=== PATIENT | male | born 1945 | race Caucasian/White ===

== ENCOUNTER → 2017-10-10 | Outpatient (REF) | payer MEDICARE ==
[2017-10-10 13:30] LABS: RHEUMATOID FACTOR QUANT < 10.0 IU/ML (0-15.0)
[2017-10-10 15:12] LABS: ERYTHROCYTE SEDIMENTATION RATE 2 mm/hr (0-20)
[2017-10-11 14:12] LABS: ANTINUCLEAR ANTIBODIES DIRECT Negative (Negative)
== END ==
LOC: M LABNEURO 09:34
DX: R51 Headache (principal)
CPT/HCPCS: 36415

== ENCOUNTER → 2020-12-25 | Outpatient (CLI) | payer MEDICARE ==
[~2020-12-25] MED LIST: CARB25TA9 PO; CITA20TA7 PO; COUM1TAB17; LATA0.0015 OU; MILK400S12 PO; TIMO5SOL6; TRAVATAN; XARE20TA PO; ZYLO300T6 PO
== END ==
LOC: M LABSMTC 09:36
PROVIDERS: ATTEND Anesthesiology
DX: Z01.812 Encounter for preprocedural laboratory examination (principal); Z20.822 Contact with and (suspected) exposure to COVID-19

== ENCOUNTER 2020-12-30 06:08 | Day surgery (SDC) | payer MEDICARE ==
[~2020-12-30] VITALS: Ht 172.7 cm; Wt 75.3 kg
[~2020-12-30 06:08] MED LIST changes: +LR 1,000 ML IV ONE; +ceFAZolin SOD 2 GM in IV 1 EA IV ONE
[2020-12-30] MEDS ORDERED: ONDANSETRON 4MG/2ML VIAL As Ordered ONE (07:15)
[2020-12-30] MEDS ORDERED: dexameTHASONE 4 MG/ML 1ML VIAL (J1100 PER 1MG) As Ordered ONE (07:15)
[2020-12-30] MEDS ORDERED: LIDOCAINE 2% 100MG/5ML SDV (FOR ANES.) As Ordered ONE (07:15)
[2020-12-30] MEDS ORDERED: ROCURONIUM BROMIDE 50 MG/5 ML VIAL As Ordered ONE ×2 (07:15→08:15)
[2020-12-30] MEDS ORDERED: propofoL 200 MG/20 ML VIAL As Ordered ONE (07:15)
[2020-12-30] MEDS ORDERED: fentaNYL 100 MCG/2 ML INJECTION (J3010) As Ordered ONE ×2 (07:16→09:41)
[2020-12-30] MEDS ORDERED: MIDAZOLAM INJ 2MG/2ML VIAL (J2250 PER 1MG) As Ordered ONE (07:16)
[2020-12-30] MEDS ORDERED: ACETAMINOPHEN 1000MG 100ML IV BTL (OFIRMEV) (J0131 PER 10MG) As Ordered ONE (07:16)
[2020-12-30] MEDS ORDERED: BUPIVACAINE HCL 0.25% 30ML VIAL As Ordered ONE (07:19)
[2020-12-30] MEDS ORDERED: LIDOCAINE 1% SDV 30ML VIAL As Ordered ONE (07:19)
[2020-12-30] MEDS ORDERED: LACRILUBE (AKWA TEARS) OPHTH OINT 3.5 GM As Ordered ONE (07:22)
[2020-12-30] MEDS ORDERED: KETOROLAC 60MG 2ML VIAL As Ordered ONE (08:22)
[2020-12-30] MEDS ORDERED: SUGAMMADEX SODIUM 500 MG/5 ML VIAL (BRIDION) As Ordered ONE (08:22)
[2020-12-30] MEDS ORDERED: ePHEDrine SULFATE 25 MG/5 ML(5MG/ML) SYRINGE As Ordered ONE (08:54)
[2020-12-30] MEDS ORDERED: oxyCODONE 5MG TAB PO PRN (10:40)
[2020-12-30] MEDS ORDERED: HYDROMORPHONE HCL 0.5 MG/ 0.5 ML SYRINGE (J1170 PER 1) IV PRN (10:40)
[2020-12-30] MEDS ORDERED: ONDANSETRON 4MG/2ML VIAL IV PRN ×2 (10:40)
[2020-12-30] MEDS ORDERED: PERCOCET 5MG/325MG TAB PO PRN (10:40)
[2020-12-30] MEDS ORDERED: LR 1,000 ML IV SCH (10:40)
[2020-12-30] MEDS ORDERED: fentaNYL 100 MCG/2 ML INJECTION (J3010) IV PRN (10:40)
[2020-12-30 12:25] VITALS: BP 129/60
== END 2020-12-30 12:25 | disposition home or self-care (01) ==
LOC: M SDC 06:08
PROVIDERS: ATTEND Surgery
DX: K40.20 Bilateral inguinal hernia, without obstruction or gangrene, not specified as recurrent (principal); I48.91 Unspecified atrial fibrillation; Z79.01 Long term (current) use of anticoagulants; F41.9 Anxiety disorder, unspecified; G20 Parkinson's disease; D64.9 Anemia, unspecified; Z86.711 Personal history of pulmonary embolism
CPT/HCPCS: 49650; C1781; J0131; J0690; J1100; J2250; J2405; J3010; S2900

== ENCOUNTER → 2021-02-25 | Outpatient (CLI) | payer MEDICARE ==
[~2021-02-25] MED LIST changes: -LR 1,000 ML IV ONE; -ceFAZolin SOD 2 GM in IV 1 EA IV ONE
--- NOTE | 2021-02-25 14:53 | REPVR ---
PROCEDURE INFORMATION: Exam: CT Maxillofacial Without Contrast, Sinus Exam date and time: 02/25/2021 2:09 PM Age: 75 years old Clinical indication: Other: Epistaxis after covid test. ? FX; Additional info: Epistaxsis TECHNIQUE: Imaging protocol: CT Maxillofacial without contrast. Focus on the sinuses. Radiation optimization: All CT scans at this facility use at least one of these dose optimization techniques: automated exposure control; mA and/or kV adjustment per patient size (includes targeted exams where dose is matched to clinical indication); or iterative reconstruction. COMPARISON: No relevant prior studies available. FINDINGS: Frontal sinuses: Mild bilateral frontal recess mucosal thickening. Ethmoid air cells: Trace bilateral ethmoid mucosal thickening. Sphenoid sinuses: Normal. No air-fluid levels. Maxillary sinuses: Mild maxillary sinus mucosal thickening. The ostiomeatal units remain patent. Nasal cavity/Septum: No nasal cavity masses. Orbital cavity: Thinning of the lenses of the globes consistent with prior lens surgery. Bones/joints: No acute fracture seen. Moderate cervical degenerative disc disease. Degenerative changes at C1-C2. Soft tissues: Unremarkable. Brain: Intracranially, an arachnoid cyst of the anterior left middle cranial fossa is incidentally noted measuring 4.2 x 3.3 cm. The brain demonstrates mild generalized volume loss. IMPRESSION: Mild, chronic sinusitis. Electronically signed by: Keyanna Hackett On 02/25/2021 14:52:54 PM
== END ==
LOC: M RAD 13:51
PROVIDERS: ATTEND Otolaryngology
DX: R04.0 Epistaxis (principal); J32.9 Chronic sinusitis, unspecified

== ENCOUNTER → 2021-07-14 | Outpatient (REF) | payer MEDICARE ==
[2021-07-14 16:51] LABS: BLOOD UREA NITROGEN 17 MG/DL (7-18); CALCIUM LEVEL 8.4 MG/DL (8.8-10.2); CARBON DIOXIDE LEVEL 31 MEQ/L (21-32); CHLORIDE LEVEL 107 MEQ/L (98-107); CREATININE FOR GFR 0.88 MG/DL (0.70-1.30); GLOMERULAR FILTRATION RATE > 60.0 (>42); GLUCOSE, FASTING 82 MG/DL (70-100); POTASSIUM SERUM 4.7 MEQ/L (3.5-5.1); SODIUM LEVEL 141 MEQ/L (136-145)
== END ==
LOC: M SFHCCLAY 13:24
PROVIDERS: ATTEND Family Medicine
DX: I11.0 Hypertensive heart disease with heart failure (principal); I50.32 Chronic diastolic (congestive) heart failure

== ENCOUNTER → 2022-09-27 | Outpatient (REF) | payer MEDICARE, OTHER, BC ==
[2022-09-27 19:58] LABS: APPEARANCE, URINE MANUAL CLEAR (CLEAR); BILIRUBIN, URINE MANUAL NEGATIVE (NEGATIVE); BLOOD URINE MANUAL NEGATIVE (NEGATIVE); COLOR, URINE MANUAL YELLOW (YELLOW); GLUCOSE, URINE (UA) MANUAL NEGATIVE (NEGATIVE); KETONE, URINE MANUAL NEGATIVE (NEGATIVE); LEUKOCYTE ESTERASE, URINE MAN TRACE (NEGATIVE); NITRITE, URINE MANUAL NEGATIVE (NEGATIVE); PROTEIN, URINE MANUAL TRACE mg/dL (NEGATIVE); SPECIFIC GRAVITY,URINE MANUAL 1.025 (1.002-1.035); UROBILINOGEN, URINE MANUAL NORMAL (NORMAL)
[2022-09-27 20:19] LABS: SQUAMOUS EPITHELIAL CELL URINE NONE SEEN /hpf (SMALL AMT)
[2022-09-27 20:20] LABS: BACTERIA, URINE NONE SEEN; HYALINE CAST, URINE 0-1 /lpf (0-1); MUCUS, URINE MOD AMOUNT (NEGATIVE)
== END ==
LOC: M LAB REF 17:10
PROVIDERS: ATTEND Family Medicine
DX: R35.0 Frequency of micturition (principal)

== ENCOUNTER → 2023-05-25 | Outpatient (CLI) | payer BC, MEDICARE | LOC: M RAD 12:37 | PROVIDERS: ATTEND Student in an Organized Health Care Education/Training Program | DX: R91.1 Solitary pulmonary nodule (principal) ==

== ENCOUNTER → 2023-05-26 | Outpatient (CLI) | payer MEDICARE ==
[2023-05-26 13:03] LABS: HEMATOCRIT 42.6 % (42.0-52.0)
[2023-05-26 13:04] LABS: BASO # 0.1 10^3/uL (0.0-0.2); BASO % 0.7 % (0.0-1.0); EOS # 0.3 10^3/uL (0.0-0.5); EOS % 4.7 % (0.0-3.0); HEMATOCRIT 42.8 % (42.0-52.0); HEMOGLOBIN 14.4 g/dl (13.5-17.5); LYMPH # 1.7 10^3/uL (1.5-5.0); LYMPH % 23.8 % (24.0-44.0); MEAN CORPUSCULAR HEMOGLOBIN 32.1 pg (27.0-33.0); MEAN CORPUSCULAR HGB CONC 33.6 g/dl (32.0-36.5); MEAN CORPUSCULAR VOLUME 95.3 fl (80.0-96.0); MONO # 0.4 10^3/uL (0.0-0.8); MONO % 5.9 % (2.0-8.0); NEUTROPHILS # 4.7 10^3/uL (1.5-8.5); NEUTROPHILS % 64.6 % (36.0-66.0); PLATELET COUNT, AUTOMATED 124 10^3/uL (150-450); RED BLOOD COUNT 4.49 10^6/uL (4.30-6.10); WHITE BLOOD COUNT 7.3 10^3/uL (4.0-10.0)
[2023-05-26 13:24] LABS: INR 1.21
[2023-05-26 13:25] LABS: PARTIAL THROMBOPLASTIN TIME 29.6 SECONDS (24.8-34.2)
[2023-05-26 13:36] LABS: ALKALINE PHOSPHATASE 50 U/L (46-116); ALT/SGPT 20 U/L (7.0-40); AST/SGOT 26 U/L (<34); BILIRUBIN,TOTAL 1.6 MG/DL (0.3-1.2); BLOOD UREA NITROGEN 14 MG/DL (9-23); CALCIUM LEVEL 9.3 MG/DL (8.3-10.6); CARBON DIOXIDE LEVEL 30 MMOL/L (20-31); CHLORIDE LEVEL 107 MMOL/L (98-107); CHOLESTEROL LEVEL 183 MG/DL (<200); CHOLESTEROL RISK RATIO 3.27 (<5); CREATININE FOR GFR 0.95 MG/DL (0.70-1.30); GLOMERULAR FILTRATION RATE > 60.0 (>42); GLUCOSE, FASTING 85 MG/DL (74-106); HDL CHOLESTEROL 55.8 MG/DL (>40); LDL CHOLESTEROL 105.6 MG/DL (<100); NON-HDL-C 127.2 MG/DL; POTASSIUM SERUM 4.3 MMOL/L (3.5-5.1); SODIUM LEVEL 144 MMOL/L (136-145); TOTAL PROTEIN 6.8 G/DL (5.7-8.2); TRIGLYCERIDES LEVEL 108 MG/DL (<150)
[2023-05-26 13:39] LABS: THYROID STIMULATING HORMONE 2.566 uIU/ML (0.55-4.78); VITAMIN B12 LEVEL 372 PG/ML (211-911)
[2023-05-26 13:40] LABS: FREE T4 0.96 NG/DL (0.89-1.76)
== END ==
LOC: M PLALAB 09:59
PROVIDERS: ATTEND Student in an Organized Health Care Education/Training Program
DX: R41.3 Other amnesia (principal); Z76.89 Persons encountering health services in other specified circumstances; Z86.718 Personal history of other venous thrombosis and embolism; Z79.899 Other long term (current) drug therapy

== ENCOUNTER 2023-06-17 09:55 | Observation (INO) | payer MEDICARE ==
[~2023-06-17] VITALS: Ht 172.7 cm; Wt 73.0 kg
[2023-06-17 11:25] LABS: BASO % 0.4 % (0.0-1.0); EOS # 0.3 10^3/uL (0.0-0.5); EOS % 2.8 % (0.0-3.0); HEMATOCRIT 40.2 % (42.0-52.0); HEMOGLOBIN 13.6 g/dl (13.5-17.5); LYMPH # 1.7 10^3/uL (1.5-5.0); LYMPH % 18.6 % (24.0-44.0); MEAN CORPUSCULAR HEMOGLOBIN 31.9 pg (27.0-33.0); MEAN CORPUSCULAR HGB CONC 33.8 g/dl (32.0-36.5); MEAN CORPUSCULAR VOLUME 94.4 fl (80.0-96.0); MONO # 0.7 10^3/uL (0.0-0.8); MONO % 7.2 % (2.0-8.0); NEUTROPHILS # 6.5 10^3/uL (1.5-8.5); NEUTROPHILS % 70.8 % (36.0-66.0); PLATELET COUNT, AUTOMATED 133 10^3/uL (150-450); RED BLOOD COUNT 4.26 10^6/uL (4.30-6.10); WHITE BLOOD COUNT 9.3 10^3/uL (4.0-10.0)
[2023-06-17 11:37] LABS: INR 1.7; PARTIAL THROMBOPLASTIN TIME 35.8 SECONDS (24.8-34.2); PROTHROMBIN TIME 19.4 SECONDS (12.5-14.5)
[2023-06-17 11:49] LABS: LIPASE 26 U/L (12-53)
[2023-06-17 11:50] LABS: CPK CREATINE PHOSPHOKINASE 143 U/L (46-171); LDH LACTATE DEHYDROGENASE 172 U/L (120-246)
[2023-06-17 11:51] LABS: ALBUMIN 3.6 G/DL (3.2-5.2); ALKALINE PHOSPHATASE 53 U/L (46-116); ALT/SGPT < 9 U/L (7.0-40); AST/SGOT 21 U/L (<34); BLOOD UREA NITROGEN 21 MG/DL (9-23); CALCIUM LEVEL 8.8 MG/DL (8.3-10.6); CARBON DIOXIDE LEVEL 26 MMOL/L (20-31); CHLORIDE LEVEL 105 MMOL/L (98-107); CREATININE FOR GFR 0.89 MG/DL (0.70-1.30); GLOMERULAR FILTRATION RATE > 60.0 (>42); GLUCOSE, FASTING 86 MG/DL (74-106); MB/CK RELATIVE INDEX 0.69 (< OR =4); POTASSIUM SERUM 4.3 MMOL/L (3.5-5.1); SODIUM LEVEL 139 MMOL/L (136-145); TOTAL PROTEIN 6.4 G/DL (5.7-8.2)
[2023-06-17 12:03] LABS: RSV AMPLIFICATION NEGATIVE (NEGATIVE)
[2023-06-17] MEDS ORDERED: ISOVUE-370 76% 100ML VIAL As Ordered ONE (12:17)
[2023-06-17 13:06] LABS: CK-MB VALUE MASS < 1.0 NG/ML (<3.6); CPK CREATINE PHOSPHOKINASE 152 U/L (46-171); MB/CK RELATIVE INDEX 0.65 (< OR =4)
[2023-06-17] MEDS ORDERED: MED REC IN PROGRESS XX SCH (14:05)
[2023-06-17 14:35] LABS: HEMATOCRIT 40.5 % (42.0-52.0); HEMOGLOBIN 13.9 g/dl (13.5-17.5)
[2023-06-17] MEDS ORDERED: RASA1TAB PO (14:53)
[2023-06-17] MEDS ORDERED: REFR1DRO8 OU (14:53)
[2023-06-17] MEDS ORDERED: CICL1SHA2 TOP (14:53)
[2023-06-17] MEDS ORDERED: COLA100C5 PO (14:53)
[2023-06-17] MEDS ORDERED: MIRA3350 PO (14:53)
[2023-06-17] MEDS ORDERED: ACET-683 PO (14:53)
[2023-06-17] MEDS ORDERED: ALLO300T2 PO (14:53)
[2023-06-17] MEDS ORDERED: NETA2.5D2 OU (14:53)
[2023-06-17] MEDS ORDERED: CLOB0.057 TOP (14:53)
[2023-06-17] MEDS ORDERED: CARB1DRO21 OP (14:53)
[2023-06-17] MEDS ORDERED: FLON1SPR NARES (14:53)
[2023-06-17] MEDS ORDERED: CITA10TA7 PO (14:53)
[2023-06-17] MEDS ORDERED: DORZ2SOL5 OU (14:53)
[2023-06-17] MEDS ORDERED: HOME MED LIST COMPLETE! XX SCH (14:55)
[2023-06-17] MEDS ORDERED: POLYVINYL ALCOHOL OPHTH SOLN 15ML (LIQUITEARS) OU PRN (15:40)
[2023-06-17] MEDS ORDERED: CLOBETASOL PROP 0.05% OINT 30 GM TOP PRN (16:10)
[2023-06-17 17:03] VITALS: BP 134/73; TEMP 98.4; O2SAT 96
[2023-06-17] MEDS: DOCUSATE SODIUM 100MG CAPSULE PO SCH (17:27)
[2023-06-17] MEDS: SINEMET 25-100 MG TAB PO SCH ×2 (17:28→20:37)
[2023-06-17] MEDS: amLODIPine 5 MG TAB PO SCH (17:28)
[2023-06-17] MEDS: MOM 30ML SUSPENSION UDC PO PRN (17:28)
[2023-06-17 20:00] VITALS: BP 127/88; TEMP 97.2; O2SAT 94
[2023-06-17] MEDS: ANUSOL HC 25MG SUPP PR SCH (20:37)
[2023-06-17] MEDS: COSOPT OCUMETER PLUS 10ML (DORZOLAMIDE/TIMOLOL) OU SCH (20:37)
[2023-06-17] MEDS: SENNA 8.6 MG TAB (SENOKOT) PO SCH (20:37)
[2023-06-17] MEDS: PREPARATION H OINTMENT (HEMORRHOID) TOP SCH (20:38)
[2023-06-18 05:10] VITALS: BP 112/63; TEMP 97.9; O2SAT 94
[2023-06-18] MEDS: ANUSOL HC 25MG SUPP PR SCH ×3 (05:39→20:16)
[2023-06-18 06:12] LABS: HEMATOCRIT 38.4 % (42.0-52.0); HEMOGLOBIN 13.2 g/dl (13.5-17.5); MEAN CORPUSCULAR HEMOGLOBIN 31.9 pg (27.0-33.0); MEAN CORPUSCULAR HGB CONC 34.4 g/dl (32.0-36.5); MEAN CORPUSCULAR VOLUME 92.8 fl (80.0-96.0); PLATELET COUNT, AUTOMATED 132 10^3/uL (150-450); RED BLOOD COUNT 4.14 10^6/uL (4.30-6.10); WHITE BLOOD COUNT 9.6 10^3/uL (4.0-10.0)
[2023-06-18 06:35] LABS: ALBUMIN 3.4 G/DL (3.2-5.2); ALKALINE PHOSPHATASE 50 U/L (46-116); ALT/SGPT < 9 U/L (7.0-40); AST/SGOT 25 U/L (<34); BILIRUBIN,TOTAL 1.8 MG/DL (0.3-1.2); BLOOD UREA NITROGEN 19 MG/DL (9-23); CALCIUM LEVEL 8.9 MG/DL (8.3-10.6); CARBON DIOXIDE LEVEL 26 MMOL/L (20-31); CHLORIDE LEVEL 106 MMOL/L (98-107); CREATININE FOR GFR 0.84 MG/DL (0.70-1.30); GLOMERULAR FILTRATION RATE > 60.0 (>42); GLUCOSE, FASTING 93 MG/DL (74-106); POTASSIUM SERUM 4.2 MMOL/L (3.5-5.1); SODIUM LEVEL 140 MMOL/L (136-145); TOTAL PROTEIN 6.3 G/DL (5.7-8.2)
[2023-06-18] MEDS: MIRALAX *UNIT DOSE* 17GM PACKET PO SCH (08:42)
[2023-06-18] MEDS: SINEMET 25-100 MG TAB PO SCH ×4 (08:43→20:11)
[2023-06-18] MEDS: RIVAROXABAN 20MG TAB (XARELTO) PO SCH (08:43)
[2023-06-18] MEDS: allopurinoL 300 MG TAB PO SCH (08:43)
[2023-06-18] MEDS: MOM 30ML SUSPENSION UDC PO PRN (08:43)
[2023-06-18] MEDS: amLODIPine 5 MG TAB PO SCH (08:43)
[2023-06-18] MEDS: DOCUSATE SODIUM 100MG CAPSULE PO SCH ×2 (08:44→20:11)
[2023-06-18] MEDS: FLUTICASONE PROP 0.05% NASAL SPRAY 16 GM (FLONASE) NARES SCH (08:44)
[2023-06-18] MEDS: COSOPT OCUMETER PLUS 10ML (DORZOLAMIDE/TIMOLOL) OU SCH ×2 (08:44→20:11)
[2023-06-18] MEDS: CitaloPRAM (CeleXA) 10 MG TABLET PO SCH (08:44)
[2023-06-18] MEDS: PREPARATION H OINTMENT (HEMORRHOID) TOP SCH ×2 (08:44→20:11)
[2023-06-18] MEDS ORDERED: DOCUSATE SODIUM 100MG CAPSULE PO SCH (09:00)
[2023-06-18 14:00] VITALS: BP 117/57; TEMP 97.7; O2SAT 92
[2023-06-18] MEDS: SENNA 8.6 MG TAB (SENOKOT) PO SCH (20:11)
[2023-06-18] MEDS: LATANOPROST OU SCH (20:16)
[2023-06-18] MEDS: NETARSUDIL OU SCH (20:16)
[2023-06-19 05:05] VITALS: BP 108/59; TEMP 97.9; O2SAT 93
[2023-06-19] MEDS: ANUSOL HC 25MG SUPP PR SCH ×3 (05:46→20:35)
[2023-06-19 06:02] LABS: HEMATOCRIT 38.5 % (42.0-52.0); HEMOGLOBIN 13.2 g/dl (13.5-17.5); MEAN CORPUSCULAR HEMOGLOBIN 32.2 pg (27.0-33.0); MEAN CORPUSCULAR HGB CONC 34.3 g/dl (32.0-36.5); MEAN CORPUSCULAR VOLUME 93.9 fl (80.0-96.0); PLATELET COUNT, AUTOMATED 126 10^3/uL (150-450); WHITE BLOOD COUNT 6.5 10^3/uL (4.0-10.0)
[2023-06-19 06:21] LABS: ALBUMIN 3.2 G/DL (3.2-5.2); ALKALINE PHOSPHATASE 48 U/L (46-116); ALT/SGPT < 9 U/L (7.0-40); AST/SGOT 28 U/L (<34); BILIRUBIN,TOTAL 1.7 MG/DL (0.3-1.2); BLOOD UREA NITROGEN 21 MG/DL (9-23); CALCIUM LEVEL 8.6 MG/DL (8.3-10.6); CARBON DIOXIDE LEVEL 27 MMOL/L (20-31); CHLORIDE LEVEL 108 MMOL/L (98-107); CREATININE FOR GFR 0.96 MG/DL (0.70-1.30); GLOMERULAR FILTRATION RATE > 60.0 (>42); GLUCOSE, FASTING 107 MG/DL (74-106); POTASSIUM SERUM 4.3 MMOL/L (3.5-5.1); SODIUM LEVEL 141 MMOL/L (136-145); TOTAL PROTEIN 6.2 G/DL (5.7-8.2)
[2023-06-19 08:28] VITALS: BP 114/67
[2023-06-19] MEDS: amLODIPine 5 MG TAB PO SCH (08:28)
[2023-06-19] MEDS: RIVAROXABAN 20MG TAB (XARELTO) PO SCH (08:29)
[2023-06-19] MEDS: SINEMET 25-100 MG TAB PO SCH ×4 (08:29→20:34)
[2023-06-19] MEDS: allopurinoL 300 MG TAB PO SCH (08:29)
[2023-06-19] MEDS: MIRALAX *UNIT DOSE* 17GM PACKET PO SCH (08:29)
[2023-06-19] MEDS: CitaloPRAM (CeleXA) 10 MG TABLET PO SCH (08:29)
[2023-06-19] MEDS: DOCUSATE SODIUM 100MG CAPSULE PO SCH ×2 (08:29→20:34)
[2023-06-19] MEDS: FLUTICASONE PROP 0.05% NASAL SPRAY 16 GM (FLONASE) NARES SCH (08:30)
[2023-06-19] MEDS: PREPARATION H OINTMENT (HEMORRHOID) TOP SCH ×2 (08:30→20:36)
[2023-06-19] MEDS: COSOPT OCUMETER PLUS 10ML (DORZOLAMIDE/TIMOLOL) OU SCH ×2 (08:31→20:36)
[2023-06-19 15:15] VITALS: BP 115/63; TEMP 98.4; O2SAT 93
[2023-06-19] MEDS ORDERED: SENN-188 PO (16:12)
[2023-06-19] MEDS ORDERED: COLA100C5 PO (16:12)
[2023-06-19] MEDS ORDERED: MOM30SS2 PO (16:12)
[2023-06-19] MEDS ORDERED: ANUSHCSU PR (16:12)
[2023-06-19] MEDS ORDERED: PREPOI TOP (16:12)
[2023-06-19 20:00] VITALS: BP 125/69; TEMP 97.6; O2SAT 96
[2023-06-19] MEDS: SENNA 8.6 MG TAB (SENOKOT) PO SCH (20:33)
[2023-06-19] MEDS: LATANOPROST OU SCH (20:37)
[2023-06-19] MEDS: NETARSUDIL OU SCH (20:37)
[2023-06-20] MEDS: ANUSOL HC 25MG SUPP PR SCH (05:43)
[2023-06-20 06:00] VITALS: BP 125/68; TEMP 97.5; O2SAT 97
[2023-06-20 06:04] LABS: HEMATOCRIT 37.3 % (42.0-52.0); HEMOGLOBIN 13.1 g/dl (13.5-17.5); MEAN CORPUSCULAR HEMOGLOBIN 32.8 pg (27.0-33.0); MEAN CORPUSCULAR HGB CONC 35.1 g/dl (32.0-36.5); MEAN CORPUSCULAR VOLUME 93.3 fl (80.0-96.0); PLATELET COUNT, AUTOMATED 128 10^3/uL (150-450); WHITE BLOOD COUNT 6.3 10^3/uL (4.0-10.0)
[2023-06-20 06:35] LABS: ALBUMIN 3.2 G/DL (3.2-5.2); ALKALINE PHOSPHATASE 48 U/L (46-116); ALT/SGPT < 9 U/L (7.0-40); AST/SGOT 24 U/L (<34); BILIRUBIN,TOTAL 1.4 MG/DL (0.3-1.2); BLOOD UREA NITROGEN 19 MG/DL (9-23); CALCIUM LEVEL 8.6 MG/DL (8.3-10.6); CARBON DIOXIDE LEVEL 27 MMOL/L (20-31); CHLORIDE LEVEL 108 MMOL/L (98-107); CREATININE FOR GFR 0.89 MG/DL (0.70-1.30); GLOMERULAR FILTRATION RATE > 60.0 (>42); GLUCOSE, FASTING 100 MG/DL (74-106); POTASSIUM SERUM 4.4 MMOL/L (3.5-5.1); SODIUM LEVEL 142 MMOL/L (136-145); TOTAL PROTEIN 6.1 G/DL (5.7-8.2)
[2023-06-20] MEDS: MIRALAX *UNIT DOSE* 17GM PACKET PO SCH (08:44)
[2023-06-20] MEDS: SINEMET 25-100 MG TAB PO SCH (08:46)
[2023-06-20] MEDS: allopurinoL 300 MG TAB PO SCH (08:47)
[2023-06-20] MEDS: PREPARATION H OINTMENT (HEMORRHOID) TOP SCH (08:47)
[2023-06-20] MEDS: RIVAROXABAN 20MG TAB (XARELTO) PO SCH (08:47)
[2023-06-20] MEDS: DOCUSATE SODIUM 100MG CAPSULE PO SCH (08:47)
[2023-06-20] MEDS: CitaloPRAM (CeleXA) 10 MG TABLET PO SCH (08:47)
[2023-06-20] MEDS: FLUTICASONE PROP 0.05% NASAL SPRAY 16 GM (FLONASE) NARES SCH (08:47)
[2023-06-20] MEDS: COSOPT OCUMETER PLUS 10ML (DORZOLAMIDE/TIMOLOL) OU SCH (08:48)
[2023-06-20 09:08] VITALS: BP 104/50
[2023-06-20] MEDS ORDERED: MOM30SS2 PO (09:36)
[2023-06-20] MEDS ORDERED: PREPOI TOP (09:36)
[2023-06-20] MEDS ORDERED: COLA100C5 PO (09:36)
[2023-06-20] MEDS ORDERED: ANUSHCSU PR (09:36)
[2023-06-20] MEDS ORDERED: SENN-188 PO (09:38)
== END 2023-06-20 11:20 | disposition home or self-care (01) ==
LOC: M ED 09:55 → M ED INP 15:30 → INTOOBSV 15:30 → ENRESERV 15:48 → M MSPAV 16:56 → UNDODISOB 06-20 11:02
PROVIDERS: ADMIT Internal Medicine; ATTEND Internal Medicine
DX: K62.5 Hemorrhage of anus and rectum (principal); K64.8 Other hemorrhoids; G31.83 Neurocognitive disorder with Lewy bodies; G20.C Parkinsonism, unspecified; G93.0 Cerebral cysts; M10.9 Gout, unspecified; E78.5 Hyperlipidemia, unspecified; R91.1 Solitary pulmonary nodule; Z79.01 Long term (current) use of anticoagulants; I25.10 Atherosclerotic heart disease of native coronary artery without angina pectoris; I47.10 Supraventricular tachycardia, unspecified; I10 Essential (primary) hypertension; H40.9 Unspecified glaucoma; Z79.899 Other long term (current) drug therapy; Z88.8 Allergy status to other drugs, medicaments and biological substances; Z86.711 Personal history of pulmonary embolism; Z86.718 Personal history of other venous thrombosis and embolism
CPT/HCPCS: 36415; 70450; 71045; 71275; 74177; 80047; 80053; 81001; 82550; 82553; 83615; 83690; 83735; 84484; 85014; 85018; 85025; 85027; 85610; 85730; 86850; 86900; 86901; 87631; 87635; 93005; 97110; 97161; 97530; 99285; G0378; Q9967

== ENCOUNTER 2023-06-21 13:35 | Emergency (ER) | payer MEDICARE ==
[~2023-06-21] VITALS: Ht 172.7 cm; Wt 76.0 kg
[~2023-06-21 13:35] MED LIST changes: +ACET-683 PO; +ALLO300T2 PO; +ANUSHCSU PR; +CARB1DRO21 OP; +CICL1SHA2 TOP; +CITA10TA7 PO; +CLOB0.057 TOP; +COLA100C5 PO; +DORZ2SOL5 OU; +FLON1SPR NARES; +MIRA3350 PO; +MOM30SS2 PO; +NETA2.5D2 OU; +PREPOI TOP; +RASA1TAB PO; +REFR1DRO8 OU; +SENN-188 PO
[2023-06-21 15:55] VITALS: BP 112/59; TEMP 99.4; O2SAT 96
== END 2023-06-21 16:04 | disposition home or self-care (01) ==
LOC: EDBD 13:35 → M ED 13:35
DX: S30.0XXA Contusion of lower back and pelvis, initial encounter (principal); W01.0XXA Fall on same level from slipping, tripping and stumbling without subsequent striking against object, initial encounter; F03.90 Unspecified dementia, unspecified severity, without behavioral disturbance, psychotic disturbance, mood disturbance, and anxiety; Z86.79 Personal history of other diseases of the circulatory system; Z88.6 Allergy status to analgesic agent; Y92.129 Unspecified place in nursing home as the place of occurrence of the external cause; Y93.9 Activity, unspecified; Y99.9 Unspecified external cause status; Z79.01 Long term (current) use of anticoagulants; Z79.52 Long term (current) use of systemic steroids; Z79.899 Other long term (current) drug therapy

== ENCOUNTER → 2023-08-30 | Outpatient (REF) | payer MEDICARE | PROVIDERS: ATTEND Student in an Organized Health Care Education/Training Program | DX: R09.89 Other specified symptoms and signs involving the circulatory and respiratory systems (principal); Z53.8 Procedure and treatment not carried out for other reasons ==

== ENCOUNTER → 2024-05-02 | Outpatient (CLI) | payer MEDICARE ==
[2024-05-02 12:53] LABS: HEMATOCRIT 39.5 % (42.0-52.0); HEMOGLOBIN 13.4 g/dl (13.5-17.5); MEAN CORPUSCULAR HEMOGLOBIN 32.6 pg (27.0-33.0); MEAN CORPUSCULAR HGB CONC 33.9 g/dl (32.0-36.5); MEAN CORPUSCULAR VOLUME 96.1 fl (80.0-96.0); PLATELET COUNT, AUTOMATED 128 10^3/uL (150-450); RED BLOOD COUNT 4.11 10^6/uL (4.30-6.10); WHITE BLOOD COUNT 5.9 10^3/uL (4.0-10.0)
== END ==
LOC: M PLALAB 10:22
PROVIDERS: ATTEND Dentist
DX: Z01.818 Encounter for other preprocedural examination (principal)

== ENCOUNTER → 2024-05-30 | Outpatient (REF) | payer MEDICARE ==
[2024-05-30 13:43] LABS: APPEARANCE, URINE HAZY (CLEAR); BACTERIA, URINE AUTO NEGATIVE (NEGATIVE); BILIRUBIN, URINE AUTO NEGATIVE (NEGATIVE); BLOOD, URINE BLOOD NEGATIVE (NEGATIVE); COLOR, URINE YELLOW (YELLOW); GLUCOSE, URINE (UA) AUTO NEGATIVE (NEGATIVE); KETONE, URINE AUTO TRACE mg/dL (NEGATIVE); LEUKOCYTE ESTERASE, URINE AUTO NEGATIVE (NEGATIVE); MUCUS, URINE SMALL (NEGATIVE); NITRITE, URINE AUTO NEGATIVE (NEGATIVE); PROTEIN, URINE AUTO NEGATIVE (NEGATIVE); RBC, URINE AUTO 2 /HPF (0-3); SPECIFIC GRAVITY URINE AUTO 1.028 (1.002-1.035); SQUAMOUS EPITHELIAL CELL UR AU 1 /HPF (0-6); UROBILINOGEN, URINE AUTO 0.2 mg/dL (0.0-2.0); WBC, URINE AUTO 1 /HPF (0-3)
== END ==
LOC: M SFHCWAGY 13:07
PROVIDERS: ATTEND Student in an Organized Health Care Education/Training Program
DX: R35.89 Other polyuria (principal)

== ENCOUNTER → 2024-06-28 | Outpatient (CLI) | payer MEDICARE | LOC: M RAD 11:35 | PROVIDERS: ATTEND Student in an Organized Health Care Education/Training Program | DX: N50.89 Other specified disorders of the male genital organs (principal) ==

== ENCOUNTER → 2024-08-22 | Outpatient (REF) | payer MEDICARE ==
[2024-08-22 13:59] LABS: APPEARANCE, URINE CLEAR (CLEAR); BACTERIA, URINE AUTO NEGATIVE (NEGATIVE); BILIRUBIN, URINE AUTO NEGATIVE (NEGATIVE); BLOOD, URINE BLOOD NEGATIVE (NEGATIVE); COLOR, URINE AMBER (YELLOW); GLUCOSE, URINE (UA) AUTO NEGATIVE (NEGATIVE); KETONE, URINE AUTO TRACE mg/dL (NEGATIVE); LEUKOCYTE ESTERASE, URINE AUTO NEGATIVE (NEGATIVE); MUCUS, URINE SMALL (NEGATIVE); NITRITE, URINE AUTO NEGATIVE (NEGATIVE); PROTEIN, URINE AUTO NEGATIVE (NEGATIVE); RBC, URINE AUTO 1 /HPF (0-3); SPECIFIC GRAVITY URINE AUTO 1.025 (1.002-1.035); SQUAMOUS EPITHELIAL CELL UR AU 0 /HPF (0-6); UROBILINOGEN, URINE AUTO 0.2 mg/dL (0.0-2.0); WBC, URINE AUTO 1 /HPF (0-3)
== END ==
LOC: M SFHCPLAZ 13:01
PROVIDERS: ATTEND Student in an Organized Health Care Education/Training Program
DX: R31.29 Other microscopic hematuria (principal)

== ENCOUNTER → 2025-02-11 | Outpatient (REF) | payer MEDICARE ==
[~2025-02-11] MED LIST changes: +COMB0.2S OU; +DIPH50CA31 PO; +DOCU100C16 PO; +META28.32 PO; +OXYB10TA23 PO; +QUET1TAB17 PO; +QUET50TA4 PO; +ROPI0.5T33 PO; +SENN8.6T28 PO
[2025-02-11 08:40] LABS: HEMATOCRIT 37.2 % (42.0-52.0); HEMOGLOBIN 12.5 g/dl (13.5-17.5); MEAN CORPUSCULAR HEMOGLOBIN 32.8 pg (27.0-33.0); MEAN CORPUSCULAR HGB CONC 33.6 g/dl (32.0-36.5); MEAN CORPUSCULAR VOLUME 97.6 fl (80.0-96.0); PLATELET COUNT, AUTOMATED 124 10^3/uL (150-450); RED BLOOD COUNT 3.81 10^6/uL (4.30-6.10); WHITE BLOOD COUNT 5.6 10^3/uL (4.0-10.0)
[2025-02-11 09:12] LABS: CALCIUM LEVEL 8.9 MG/DL (8.3-10.6); CREATININE FOR GFR 0.77 MG/DL (0.70-1.30); GLOMERULAR FILTRATION RATE 89.9 (>35)
== END ==
PROVIDERS: ATTEND Physician Assistant
DX: I10 Essential (primary) hypertension (principal)

== ENCOUNTER → 2025-02-13 | Outpatient (REF) | payer MEDICARE ==
[2025-02-13 09:29] LABS: BASO # 0.1 10^3/uL (0.0-0.2); BASO % 0.7 % (0.0-1.0); EOS # 0.4 10^3/uL (0.0-0.5); EOS % 6.0 % (0.0-3.0); LYMPH # 1.5 10^3/uL (1.5-5.0); LYMPH % 22.1 % (24.0-44.0); MONO # 0.5 10^3/uL (0.0-0.8); MONO % 7.5 % (2.0-8.0); NEUTROPHILS # 4.4 10^3/uL (1.5-8.5); NEUTROPHILS % 63.4 % (36.0-66.0); PLATELET COUNT, AUTOMATED 168 10^3/uL (150-450)
[2025-02-13 10:01] LABS: ALT/SGPT < 9 U/L (7.0-40); AST/SGOT 42 U/L (<34); CALCIUM LEVEL 9.0 MG/DL (8.3-10.6); CARBON DIOXIDE LEVEL 28 MMOL/L (20-31); CHLORIDE LEVEL 104 MMOL/L (98-107); CREATININE FOR GFR 0.87 MG/DL (0.70-1.30); GLOMERULAR FILTRATION RATE 86.7 (>35); POTASSIUM SERUM 4.1 MMOL/L (3.5-5.1); SODIUM LEVEL 143 MMOL/L (136-145)
== END ==
PROVIDERS: ATTEND Physician Assistant
DX: R31.9 Hematuria, unspecified (principal)

== ENCOUNTER → 2025-02-18 | Outpatient (REF) | payer MEDICARE ==
[2025-02-18 10:43] LABS: PLATELET COUNT, AUTOMATED 191 10^3/uL (150-450)
[2025-02-18 10:58] LABS: CALCIUM LEVEL 8.7 MG/DL (8.3-10.6); CARBON DIOXIDE LEVEL 26.0 MMOL/L (20-31); CHLORIDE LEVEL 105.0 MMOL/L (98-107); CREATININE FOR GFR 0.83 MG/DL (0.70-1.30); GLOMERULAR FILTRATION RATE 87.9 (>35); POTASSIUM SERUM 4.4 MMOL/L (3.5-5.1); SODIUM LEVEL 142.0 MMOL/L (136-145)
== END ==
PROVIDERS: ATTEND Physician Assistant
DX: I10 Essential (primary) hypertension (principal)

== ENCOUNTER → 2025-03-11 | Outpatient (REF) ==
[~2025-03-11] MED LIST changes: +DIPH50CA PO; -DIPH50CA31 PO
[2025-03-11 13:35] LABS: BASO # 0.0 10^3/uL (0.0-0.2); BASO % 0.4 % (0.0-1.0); EOS # 0.4 10^3/uL (0.0-0.5); EOS % 5.3 % (0.0-3.0); LYMPH # 1.2 10^3/uL (1.5-5.0); LYMPH % 17.3 % (24.0-44.0); MONO # 0.4 10^3/uL (0.0-0.8); MONO % 6.0 % (2.0-8.0); NEUTROPHILS # 4.8 10^3/uL (1.5-8.5); NEUTROPHILS % 70.6 % (36.0-66.0); PLATELET COUNT, AUTOMATED 147 10^3/uL (150-450)
[2025-03-11 13:42] LABS: ERYTHROCYTE SEDIMENTATION RATE 12 mm/hr (0-20)
[2025-03-11 13:52] LABS: C REACTIVE PROTEIN QUANTITATIV 0.77 MG/DL (<1.0); CALCIUM LEVEL 8.8 MG/DL (8.3-10.6); CARBON DIOXIDE LEVEL 27.0 MMOL/L (20-31); CHLORIDE LEVEL 104.0 MMOL/L (98-107); CREATININE FOR GFR 1.05 MG/DL (0.70-1.30); GLOMERULAR FILTRATION RATE 71.3 (>35); POTASSIUM SERUM 4.5 MMOL/L (3.5-5.1); SODIUM LEVEL 143.0 MMOL/L (136-145)
[2025-03-11 13:56] LABS: THYROXINE (T4) 5.5 UG/DL (4.5-10.9)
== END ==
PROVIDERS: ATTEND Physician Assistant
DX: R41.82 Altered mental status, unspecified (principal)

== ENCOUNTER → 2025-03-11 | Outpatient (REF) | payer MEDICARE ==
[~2025-03-11] MED LIST changes: -DIPH50CA PO; +DIPH50CA31 PO
== END ==
PROVIDERS: ATTEND Physician Assistant
DX: R41.82 Altered mental status, unspecified (principal)

== ENCOUNTER → 2025-04-01 | Outpatient (REF) | payer MEDICARE ==
[2025-04-01 11:47] LABS: PLATELET COUNT, AUTOMATED 159 10^3/uL (150-450)
[2025-04-01 12:16] LABS: CALCIUM LEVEL 8.8 MG/DL (8.3-10.6); CARBON DIOXIDE LEVEL 29.0 MMOL/L (20-31); CHLORIDE LEVEL 106.0 MMOL/L (98-107); CREATININE FOR GFR 0.84 MG/DL (0.70-1.30); GLOMERULAR FILTRATION RATE 87.6 (>35); POTASSIUM SERUM 4.0 MMOL/L (3.5-5.1); SODIUM LEVEL 145.0 MMOL/L (136-145)
== END ==
PROVIDERS: ATTEND Internal Medicine
DX: Z86.718 Personal history of other venous thrombosis and embolism (principal)

== ENCOUNTER → 2025-05-08 | Outpatient (REF) | payer MEDICARE ==
[2025-05-08 13:33] LABS: PLATELET COUNT, AUTOMATED 184 10^3/uL (150-450)
[2025-05-08 14:09] LABS: CALCIUM LEVEL 8.7 MG/DL (8.3-10.6); CARBON DIOXIDE LEVEL 29.0 MMOL/L (20-31); CHLORIDE LEVEL 106.0 MMOL/L (98-107); CREATININE FOR GFR 0.82 MG/DL (0.70-1.30); GLOMERULAR FILTRATION RATE 88.3 (>35); POTASSIUM SERUM 4.4 MMOL/L (3.5-5.1); SODIUM LEVEL 142.0 MMOL/L (136-145)
== END ==
PROVIDERS: ATTEND Internal Medicine
DX: Z86.718 Personal history of other venous thrombosis and embolism (principal); Z79.01 Long term (current) use of anticoagulants

== ENCOUNTER → 2025-06-05 | Outpatient (REF) | payer MEDICARE, MEDICAID ==
[2025-06-05 11:57] LABS: PLATELET COUNT, AUTOMATED 133 10^3/uL (150-450)
[2025-06-05 12:29] LABS: CALCIUM LEVEL 9.0 MG/DL (8.3-10.6); CARBON DIOXIDE LEVEL 28.0 MMOL/L (20-31); CHLORIDE LEVEL 105.0 MMOL/L (98-107); CREATININE FOR GFR 0.83 MG/DL (0.70-1.30); GLOMERULAR FILTRATION RATE 87.9 (>35); POTASSIUM SERUM 3.9 MMOL/L (3.5-5.1); SODIUM LEVEL 144.0 MMOL/L (136-145)
== END ==
PROVIDERS: ATTEND Internal Medicine
DX: J98.4 Other disorders of lung (principal); R05.9 Cough, unspecified; Z86.718 Personal history of other venous thrombosis and embolism

== ENCOUNTER → 2025-07-02 | Outpatient (REF) | payer MEDICARE, MEDICAID | PROVIDERS: ATTEND Physician Assistant | DX: R05.9 Cough, unspecified (principal) ==

== ENCOUNTER → 2025-07-03 | Outpatient (REF) | payer MEDICARE, OTHER ==
[2025-07-03 11:54] LABS: PLATELET COUNT, AUTOMATED 122 10^3/uL (150-450)
[2025-07-03 12:02] LABS: CALCIUM LEVEL 8.5 MG/DL (8.3-10.6); CARBON DIOXIDE LEVEL 26.0 MMOL/L (20-31); CHLORIDE LEVEL 108.0 MMOL/L (98-107); CREATININE FOR GFR 0.81 MG/DL (0.70-1.30); GLOMERULAR FILTRATION RATE 88.6 (>35); POTASSIUM SERUM 4.2 MMOL/L (3.5-5.1); SODIUM LEVEL 142.0 MMOL/L (136-145)
== END ==
PROVIDERS: ATTEND Internal Medicine
DX: I82.409 Acute embolism and thrombosis of unspecified deep veins of unspecified lower extremity (principal)

== ENCOUNTER → 2025-07-22 | Outpatient (REF) | payer MEDICARE, MEDICAID ==
[2025-07-22 10:38] LABS: PLATELET COUNT, AUTOMATED 125 10^3/uL (150-450)
[2025-07-22 11:02] LABS: CALCIUM LEVEL 8.7 MG/DL (8.3-10.6); CARBON DIOXIDE LEVEL 29.0 MMOL/L (20-31); CHLORIDE LEVEL 110.0 MMOL/L (98-107); CREATININE FOR GFR 0.95 MG/DL (0.70-1.30); GLOMERULAR FILTRATION RATE 80.4 (>35); POTASSIUM SERUM 4.5 MMOL/L (3.5-5.1); SODIUM LEVEL 144.0 MMOL/L (136-145)
== END ==
PROVIDERS: ATTEND Internal Medicine
DX: I82.409 Acute embolism and thrombosis of unspecified deep veins of unspecified lower extremity (principal)

== ENCOUNTER → 2025-08-12 | Outpatient (REF) | payer MEDICARE, MEDICAID ==
[2025-08-12 14:13] LABS: INFLUENZA A AMPLIFICATION NEGATIVE (NEGATIVE); INFLUENZA B AMPLIFICATION NEGATIVE (NEGATIVE)
== END ==
PROVIDERS: ATTEND Physician Assistant
DX: R05.9 Cough, unspecified (principal)